=== PATIENT | female | born 1975 | race American Indian/Alaskan Native ===

== ENCOUNTER 2017-03-12 21:49 | Emergency (ER) | payer OTHER, MEDICARE ==
[2017-03-13] MEDS ORDERED: MOTRIN PO ONE (01:40)
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
[2017-03-13 02:16] VITALS: BP 130/70
== END 2017-03-13 02:16 | disposition home or self-care (01) ==
LOC: ED 21:49
DX: S13.4XXA Sprain of ligaments of cervical spine, initial encounter (principal); S39.012A Strain of muscle, fascia and tendon of lower back, initial encounter; I10 Essential (primary) hypertension; Z88.0 Allergy status to penicillin; Z91.013 Allergy to seafood; Z91.012 Allergy to eggs; Z88.2 Allergy status to sulfonamides; Z91.040 Latex allergy status; V49.49XA Driver injured in collision with other motor vehicles in traffic accident, initial encounter; Y93.89 Activity, other specified; Y99.9 Unspecified external cause status; Y92.410 Unspecified street and highway as the place of occurrence of the external cause
CPT/HCPCS: 99282

== ENCOUNTER 2018-03-29 17:42 | Emergency (ER) | payer MEDICARE ==
[2018-03-29 17:51] VITALS: BP 106/69
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
[2018-03-29] MEDS ORDERED: TYLENOL ONE (18:17)
[2018-03-29] MEDS ORDERED: TYLENOL PO ONE (18:30)
--- NOTE | 2018-03-29 19:31 | XRay Report ---
FINAL REPORT EXAM: XR FOOT 3+V RT HISTORY: injury COMPARISON: Right ankle from the same date. FINDINGS: Three views of right foot obtained. Small calcaneal spurs. Bony structures are intact. Joint spaces are preserved. No acute fracture dislocation. IMPRESSION: No acute bony abnormality.
--- NOTE | 2018-03-29 19:31 | XRay Report ---
FINAL REPORT EXAM: XR ANKLE 3+V RT HISTORY: pain and swelling r/t injury COMPARISON: None available. FINDINGS: Two views the right ankle obtained. Ankle mortise is preserved. No acute fracture dislocation. IMPRESSION: No acute bony abnormality.
[2018-03-29] MEDS ORDERED: TORADOL IM ONE (20:04)
== END 2018-03-29 20:35 | disposition home or self-care (01) ==
LOC: ED 17:42
DX: S93.431A Sprain of tibiofibular ligament of right ankle, initial encounter (principal); I10 Essential (primary) hypertension; Z90.49 Acquired absence of other specified parts of digestive tract; Z98.51 Tubal ligation status; Z79.899 Other long term (current) drug therapy; Z88.1 Allergy status to other antibiotic agents; Z88.0 Allergy status to penicillin; Z91.012 Allergy to eggs; Z91.013 Allergy to seafood; Z91.040 Latex allergy status; X50.1XXA Overexertion from prolonged static or awkward postures, initial encounter; Y93.31 Activity, mountain climbing, rock climbing and wall climbing; Y99.8 Other external cause status; Y92.828 Other wilderness area as the place of occurrence of the external cause
CPT/HCPCS: 73610; 73630; 96372; 99284; J1885

== ENCOUNTER 2018-09-06 03:44 | Emergency (ER) | payer MEDICARE ==
[2018-09-06] MEDS ORDERED: ZOFRAN ONE (04:11)
[2018-09-06] MEDS ORDERED: ZOFRAN IV ONE (04:49)
[2018-09-06 04:53] LABS: Basophils # (Auto) 0.1 K/mm3 (0.0-0.1); Eosinophils # (Auto) 0.1 K/mm3 (0.0-0.4); Eosinophils % (Auto) 0.7 % (0.0-4.3); Hematocrit 35.6 % (30.3-42.9); Hemoglobin 11.7 gm/dl (10.1-14.3); Lymphocytes # (Auto) 1.2 K/mm3 (1.2-5.4); Lymphocytes % (Auto) 14.7 % (13.4-35.0); Mean Corpuscular HGB Conc 33 % (30-34); Mean Corpuscular Hemoglobin 28 pg (28-32); Mean Corpuscular Volume 86 fl (79-97); Monocytes # (Auto) 0.4 K/mm3 (0.0-0.8); Monocytes % (Auto) 4.4 % (0.0-7.3); Platelet Count 219 K/mm3 (140-440); Red Blood Count 4.13 M/mm3 (3.65-5.03); Red Cell Distribution Width 13.7 % (13.2-15.2)
[2018-09-06 05:13] LABS: BUN/Creatinine Ratio 13; Blood Urea Nitrogen 8 mg/dL (7-17); Calcium 8.8 mg/dL (8.4-10.2); Hemolysis Index 3
[2018-09-06] MEDS ORDERED: PEPCID IV ONE (06:39)
--- NOTE | 2018-09-06 06:41 | Emergency Department Report ---
ED General Adult HPI - General Chief complaint: Nausea/Vomiting/Diarrhea Stated complaint: THROWING UP Time Seen by Provider: 09/06/18 06:20 Source: patient, family, RN notes reviewed Mode of arrival: Ambulatory Limitations: No Limitations - History of Present Illness Initial comments: This is a 42-year-old female who is not known to this provider previously. Past medical history includes hypertension, cholecystectomy, gastric sleeve, tubal ligation, fibroids Patient presents to the ER with a complaint of abdominal cramping, nausea and vomiting. 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 Both patient and companions deny other coingestions. They report that this ingestion was recreational in nature. There is no intent to self-harm. Patient describes 10 episodes of nonbloody, nonbilious emesis after consuming alcohol. Prior to consuming alcohol, she was not having any symptoms. She doesn't really have much in with abdominal pain at this time. Her symptoms are mostly resolved after being given Zofran. She denies lower abdominal pain, and denies or delivery within the past 2 months. -: Gradual Location: abdomen Radiation: non-radiation Quality: aching Consistency: now resolved Improves with: medication Worsens with: eating Associated Symptoms: loss of appetite, malaise, nausea/vomiting, weakness. denies: confusion, chest pain, cough, diaphoresis, fever/chills, headaches, rash , seizure, shortness of breath, syncope - Related Data Previous Rx's Medication Instructions Recorded Last Taken Type Ibuprofen [Motrin] 600 mg PO Q8H PRN #30 tablet 09/21/15 Unknown Rx diazePAM TAB [Valium] 5 mg PO TID PRN #10 tablet 09/21/15 Unknown Rx Cyclobenzaprine HCl [Flexeril 5 MG 5 mg PO TID 5 Days tab 03/13/17 Unknown Rx TAB] Ibuprofen [Motrin 600 MG tab] 600 mg PO Q8H PRN 5 Days tablet 03/13/17 Unknown Rx Acetaminophen/Codeine [Tylenol 1 tab PO Q6H PRN #9 tab 03/29/18 Unknown Rx /Codeine # 3 tab] Ibuprofen [Motrin] 600 mg PO Q8H PRN #25 tablet 03/29/18 Unknown Rx Acetaminophen [Tylenol Arthritis] 650 mg PO Q6HR PRN #30 tablet.er 09/06/18 Unknown Rx Famotidine [Pepcid] 20 mg PO BID #10 tablet 09/06/18 Unknown Rx Ondansetron [Zofran Odt] 4 mg PO Q8HR PRN #20 tab.rapdis 09/06/18 Unknown Rx Allergies Allergy/AdvReac Type Severity Reaction Status Date / Time amoxicillin Allergy Unknown Verified 03/29/18 17:51 egg Allergy Hives Verified 03/12/17 22:44 Fish Containing Products Allergy Hives Verified 03/12/17 22:44 latex Allergy Hives Verified 09/21/15 13:01 metoclopramide [From Reglan] Allergy Unknown Verified 03/29/18 17:51 Penicillins Allergy Hives Verified 03/12/17 22:43 Sulfa (Sulfonamide Allergy Hives Verified 03/12/17 22:44 Antibiotics) ED Review of Systems ROS: Stated complaint: THROWING UP Other details as noted in HPI Comment: All other systems reviewed and negative ED Past Medical Hx - Past Medical History Hx Hypertension: Yes - Surgical History Hx Cholecystectomy: Yes Additional Surgical History: gastric sleve,laproscopic r/t fibroids, tubiligation then reversal 2011- no since - Social History Smoking Status: Never Smoker Substance Use Type: None - Medications Home Medications: Home Medications Medication Instructions Recorded Confirmed Last Taken Type Ibuprofen [Motrin] 600 mg PO Q8H PRN #30 tablet 09/21/15 Unknown Rx diazePAM TAB [Valium] 5 mg PO TID PRN #10 tablet 09/21/15 Unknown Rx Cyclobenzaprine HCl [Flexeril 5 MG 5 mg PO TID 5 Days tab 03/13/17 Unknown Rx TAB] Ibuprofen [Motrin 600 MG tab] 600 mg PO Q8H PRN 5 Days tablet 03/13/17 Unknown Rx Acetaminophen/Codeine [Tylenol 1 tab PO Q6H PRN #9 tab 03/29/18 Unknown Rx /Codeine # 3 tab] Ibuprofen [Motrin] 600 mg PO Q8H PRN #25 tablet 03/29/18 Unknown Rx Acetaminophen [Tylenol Arthritis] 650 mg PO Q6HR PRN #30 tablet.er 09/06/18 Unknown Rx Famotidine [Pepcid] 20 mg PO BID #10 tablet 09/06/18 Unknown Rx Ondansetron [Zofran Odt] 4 mg PO Q8HR PRN #20 tab.rapdis 09/06/18 Unknown Rx ED Physical Exam - General Limitations: No Limitations General appearance: alert, in no apparent distress - Head Head exam: Present: atraumatic, normocephalic - Eye Eye exam: Present: normal appearance, EOMI. Absent: nystagmus - ENT ENT exam: Present: normal exam, normal orophraynx, mucous membranes moist, normal external ear exam - Neck Neck exam: Present: normal inspection, full ROM. Absent: tenderness, meningismus - Respiratory Respiratory exam: Present: normal lung sounds bilaterally. Absent: respiratory distress - Cardiovascular Cardiovascular Exam: Present: regular rate, normal rhythm, normal heart sounds. Absent: bradycardia, tachycardia, irregular rhythm, systolic murmur, diastolic murmur, rubs, gallop - GI/Abdominal GI/Abdominal exam: Present: soft, tenderness, other (there is epigastric tenderness, with no right upper quadrant tenderness, no rebound, guarding or peritoneal signs.). Absent: distended, guarding, rebound, rigid, pulsatile mass - Extremities Exam Extremities exam: Present: normal inspection, full ROM, normal capillary refill , other (2+ pulses noted in the bilateral upper, lower extremities. Compartments soft. No long bony tenderness. The pelvis is stable.). Absent: tenderness, pedal edema, joint swelling, calf tenderness - Back Exam Back exam: Present: normal inspection, full ROM. Absent: tenderness, CVA tenderness (R), paraspinal tenderness, vertebral tenderness - Neurological Exam Neurological exam: Present: alert, oriented X3, CN II-XII intact, other ( Extraocular movements intact. Tongue midline. No facial droop. Facial sensation intact to light touch in the V1, V2, V3 distribution bilaterally. 5 and 5 strength in 4 extremities.. Sensation is intact to light touch in 4 extremities.). Absent: motor sensory deficit - Psychiatric Psychiatric exam: Present: normal affect, normal mood - Skin Skin exam: Present: warm, dry, intact, normal color. Absent: rash ED Course Vital Signs 09/06/18 09/06/18 09/06/18 03:50 03:55 07:25 Temperature 97.6 F 97.6 F Pulse Rate 73 69 Respiratory 18 18 Rate Blood Pressure 142/90 142/90 125/74 O2 Sat by Pulse 100 100 Oximetry 09/06/18 09/06/18 09/06/18 07:30 08:01 08:15 Temperature Pulse Rate 89 Respiratory 16 Rate Blood Pressure 130/80 120/84 122/74 O2 Sat by Pulse 100 97 Oximetry 09/06/18 09/06/18 09/06/18 08:30 08:55 09:02 Temperature Pulse Rate 87 Respiratory 15 Rate Blood Pressure 115/73 115/73 115/73 O2 Sat by Pulse 84 Oximetry - Reevaluation(s) Reevaluation #1: 09/06/18 06:49 Differential diagnosis, including but not limited to: Pancreatitis, alcoholic gastritis, alcohol intoxication, calm patient from bariatric surgery Assessment and plan: 42-year-old female who had gastric sleeve performed approximately one year ago, with epigastric pain, nausea and vomiting, minimal tenderness, the context of alcohol consumption. I suspect alcohol intoxication , with abdominal wall pain secondary to nausea and vomiting. Nevertheless, given history of gastric sleeve, we'll obtain CT scan of the abdomen and pelvis. Patient will be given Pepcid, and D5 half-normal. We will obtain EKG. 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 The patient is pleasant, calm and cooperative at this time, does not meet 1013 criteria. Reevaluation #2: 09/06/18 09:15 CT scan of the abdomen and pelvis is negative for acute disease. Patient is tolerating liquid feeds and walking with a steady gait and is clinically sober at this time. Belly is soft on repeat examination. Patient is medically suitable for discharge at this point in time. ED Medical Decision Making - Lab Data Result diagrams: 09/06/18 04:24 09/06/18 04:24 Vital Signs 09/06/18 03:55 Temperature 97.6 F Pulse Rate 69 Respiratory 18 Rate Blood Pressure 142/90 O2 Sat by Pulse 100 Oximetry Lab Results 09/06/18 09/06/18 09/06/18 Range/Units 04:24 04:24 04:24 WBC 8.2 (4.5-11.0) K/mm3 RBC 4.13 (3.65-5.03) M/mm3 Hgb 11.7 (10.1-14.3) gm/dl Hct 35.6 (30.3-42.9) % MCV 86 (79-97) fl MCH 28 (28-32) pg MCHC 33 (30-34) % RDW 13.7 (13.2-15.2) % Plt Count 219 (140-440) K/mm3 Lymph % (Auto) 14.7 (13.4-35.0) % [place] % (Auto) 4.4 (0.0-7.3) % Eos % (Auto) 0.7 (0.0-4.3) % Baso % (Auto) 1.0 (0.0-1.8) % Lymph # 1.2 (1.2-5.4) K/mm3 [place] # 0.4 (0.0-0.8) K/mm3 Eos # 0.1 (0.0-0.4) K/mm3 Baso # 0.1 (0.0-0.1) K/mm3 Seg Neutrophils % 79.2 H (40.0-70.0) % Seg Neutrophils # 6.5 (1.8-7.7) K/mm3 Sodium 140 (137-145) mmol/L Potassium 3.4 L (3.6-5.0) mmol/L Chloride 101.7 (98-107) mmol/L Carbon Dioxide 20 L (22-30) mmol/L Anion Gap 22 mmol/L BUN 8 (7-17) mg/dL Creatinine 0.6 L (0.7-1.2) mg/dL Estimated GFR > 60 ml/min BUN/Creatinine Ratio 13 % Glucose 135 H (65-100) mg/dL Calcium 8.8 (8.4-10.2) mg/dL HCG, Qual Negative (Negative) - EKG Data -: EKG Interpreted by Me EKG shows normal: sinus rhythm - EKG Data When compared to previous EKG there are: previous EKG unavailable 09/06/18 07:02 Sinus, 85 bpm, normal axis, QTC prolonged, low voltage, abnormal EKG, not having chest pain, not a stemi Critical care attestation.: If time is entered above; I have spent that time in minutes in the direct care of this critically ill patient, excluding procedure time. ED Disposition Clinical Impression: History of alcohol use, Resolved abdominal pain Disposition: TO HOME OR SELFCARE Is pt being admited?: No Does the pt Need Aspirin: No Condition: Good Additional Instructions: Avoid consumption of Motrin, ibuprofen, Naprosyn, Aleve, heavy, spicy foods. Make certain to moderate and be judicious with alcohol consumption in the future. Take pain medications as needed/directed, and advance diet as tolerated. Return to the ER right away with new pain, worsened pain, migration of pain, projectile vomiting, change in mental status, confusion, inability to tolerate liquid feeds. Referrals: [facility] [Provider Group] - 3-5 Days
[2018-09-06] MEDS ORDERED: K-DUR PO ONE (06:51)
[2018-09-06] MEDS ORDERED: D5/0.45NS 1,000 ML IV SCH (07:00)
[2018-09-06] MEDS ORDERED: KCL 10MEQ/100ML 10 MEQ/100 ML BAG IV SCH (07:00)
[2018-09-06 09:05] VITALS: BP 115/73
--- NOTE | 2018-09-06 09:12 | Cat Scan Report ---
FINAL REPORT PROCEDURE: CT ABDOMEN PELVIS W CON TECHNIQUE: Computerized axial tomography of the abdomen and pelvis was performed after the IV injection of iodinated nonionic contrast. HISTORY: abd pain n/v COMPARISON: No prior studies are available for comparison. FINDINGS: Liver, spleen, and adrenal glands are within normal limits. Bilateral kidneys demonstrate uniform enhancement without hydronephrosis. Urinary bladder is partially filled. Bladder juarez appear mildly thickened most likely secondary to lack of distension. Aorta is of normal caliber. Mild degree of free fluid is noted in the pelvic cavity which is within physiologic limits. There is no free air. Status post cholecystectomy. Small bowel loops are within normal limits. Moderate degree residual stool is noted. Appendix is normal. Vertebral height is normal. IMPRESSION: Mild degree bladder wall thickening is most likely secondary to lack of distension. Otherwise no acute intra-abdominal or pelvic pathology.
== END 2018-09-06 09:43 | disposition home or self-care (01) ==
LOC: ED 03:44
DX: R10.13 Epigastric pain (principal); R11.2 Nausea with vomiting, unspecified; I10 Essential (primary) hypertension; F10.920 Alcohol use, unspecified with intoxication, uncomplicated; Z88.0 Allergy status to penicillin; Z88.1 Allergy status to other antibiotic agents; Z88.2 Allergy status to sulfonamides; Z88.5 Allergy status to narcotic agent; Z91.012 Allergy to eggs; Z91.013 Allergy to seafood; Z91.040 Latex allergy status; Z90.49 Acquired absence of other specified parts of digestive tract; Z98.84 Bariatric surgery status; Z98.51 Tubal ligation status
CPT/HCPCS: 36415; 74177; 80048; 83690; 83735; 84703; 85025; 93005; 93010; 96365; 96366; 96375; 99284; G0480; J2405; J3480; Q9967; 80320

== ENCOUNTER 2018-12-17 04:13 | Emergency (ER) | payer MEDICARE ==
[2018-12-17 04:59] VITALS: BP 102/75
[2018-12-17] MEDS ORDERED: TORADOL IM ONE (05:58)
[2018-12-17] MEDS ORDERED: NEURONTIN PO ONE (05:58)
--- NOTE | 2018-12-17 06:07 | Emergency Department Report ---
Upper Extremity - HPI Chief Complaint: Extremity Problem,Nontraumatic Stated Complaint: LEFT ARM/HAND NUMBNESS Time Seen by Provider: 12/17/18 06:01 Upper Extremity: Left Shoulder (pain ), Left Arm (pain tingling), Left Elbow Occurred When: >5 Days (chronic pain) Symptoms: Yes Pain with Movement, No Deformity, No Limited Range of Movement, No Numbness, No Weakness, No Swelling, No Bruising/Ecchymosis, No Laceration or Abrasion Other History: Patient is a 43-year-old -[place] female with a history of cervical radiculopathy radiating to left arm patient states her gabapentin and Flexeril patient is followed by Dr. Serrano and Neurology, this problem has been recurring for the last 5 years patient denies chest pain or shortness of breath no diaphoresis no nausea vomiting no dizziness or lightheadedness no cardiac history this flare is described as usual symptoms location, intensity, and duration as 5/10 burning aching tingling pt requesting refill no ga aria barker, will follow up with Dr Serrano in 5 days ED Review of Systems ROS: Stated complaint: LEFT ARM/HAND NUMBNESS Other details as noted in HPI Constitutional: denies: chills, fever Eyes: denies: eye pain, eye discharge, vision change ENT: denies: ear pain, throat pain Respiratory: denies: cough, shortness of breath, wheezing Cardiovascular: denies: chest pain, palpitations Endocrine: no symptoms reported Gastrointestinal: denies: abdominal pain, nausea, diarrhea Genitourinary: denies: urgency, dysuria, discharge Musculoskeletal: myalgia (left arm ) Skin: denies: rash, lesions Neurological: denies: headache, weakness, paresthesias Psychiatric: denies: anxiety, depression Hematological/Lymphatic: denies: easy bleeding, easy bruising ED Past Medical Hx - Past Medical History Previous Medical History?: Yes Hx Hypertension: Yes Hx Arthritis: Yes Hx Asthma: Yes Additional medical history: muscle spasm - Surgical History Past Surgical History?: Yes Hx Cholecystectomy: Yes Additional Surgical History: gastric sleve,laproscopic r/t fibroids,tubiligation then reversal 2011- no since - Social History Smoking Status: Never Smoker Substance Use Type: None - Medications Home Medications: Home Medications Medication Instructions Recorded Confirmed Last Taken Type Ibuprofen [Motrin] 600 mg PO Q8H PRN #30 tablet 09/21/15 Unknown Rx diazePAM TAB [Valium] 5 mg PO TID PRN #10 tablet 09/21/15 Unknown Rx Cyclobenzaprine HCl [Flexeril 5 MG 5 mg PO TID 5 Days tab 03/13/17 Unknown Rx TAB] Ibuprofen [Motrin 600 MG tab] 600 mg PO Q8H PRN 5 Days tablet 03/13/17 Unknown Rx Acetaminophen/Codeine [Tylenol 1 tab PO Q6H PRN #9 tab 03/29/18 Unknown Rx /Codeine # 3 tab] Ibuprofen [Motrin] 600 mg PO Q8H PRN #25 tablet 03/29/18 Unknown Rx Acetaminophen [Tylenol Arthritis] 650 mg PO Q6HR PRN #30 tablet.er 09/06/18 Unknown Rx Famotidine [Pepcid] 20 mg PO BID #10 tablet 09/06/18 Unknown Rx Ondansetron [Zofran Odt] 4 mg PO Q8HR PRN #20 tab.rapdis 09/06/18 Unknown Rx Cyclobenzaprine [Flexeril] 10 mg PO QHS PRN #10 tablet 10/13/18 Unknown Rx Naproxen [Naprosyn TAB] 500 mg PO BID PRN #20 tablet 10/13/18 Unknown Rx Cyclobenzaprine [Flexeril] 10 mg PO TID PRN #30 tablet 12/17/18 Unknown Rx Gabapentin [Neurontin] 300 mg PO Q8HR #90 capsule 12/17/18 Unknown Rx Menthol/Camphor [Taswell [place] 1 applicatio TP QID PRN #1 tube 12/17/18 Unknown Rx Ointment] Naproxen [Naprosyn] 500 mg PO BID PRN #30 tablet 12/17/18 Unknown Rx Upper Extremity Exam - Exam General: Vital signs noted. No distress. Alert and acting appropriately. Head and Torso: No HEENT Abnormality, No Neck Tenderness, No Chest/Lungs Abnormality, No Abdominal Tenderness, No Back Tenderness Shoulder Exam: Yes Normal Range of Motion in Shoulder, No Shoulder Tenderness, No Clavicle Tenderness, No Shoulder Deformity, No AC Joint Tenderness Arm Exam: No Arm/Humerus Tenderness, No Arm Deformity Elbow: Yes Normal Range of Motion in Elbow, No Elbow Tenderness, No Elbow Deformity Forearm: Yes Forearm Tenderness (carpal region tenderness ), Yes Pain with Pronation, Yes Pain with Supination, No Forearm Deformity Wrist: Yes Normal ROM in Wrist, No Wrist Tenderness, No Wrist Deformity, No Snuffbox Tenderness, No Pain with Axial Thumb Compression Hand: Yes Normal ROM in Digit(s), No Hand Tenderness, No Hand Deformity, No Digit Tenderness, No Digit(s) Deformity, No Tendon Dysfunction CMS Exam: Yes Normal Distal Pulses, Yes Normal Capillary Refill, Yes Normal Distal Sensation, No Broken Skin ED Course Vital Signs 12/17/18 04:46 Temperature 97.3 F L Pulse Rate 74 Respiratory 12 Rate Blood Pressure 102/75 O2 Sat by Pulse 99 Oximetry ED Medical Decision Making - EKG Data EKG shows normal: sinus rhythm Rate: normal - EKG Data When compared to previous EKG there are: other (no previous EKG at facility ) Interpretation: normal EKG (Normal ekg no ST elevated SC, no ectopy interp be ED attending, ) - Medical Decision Making EKG normal sinus rhythm no ectopy or ST segment abnormalities, pain is improved with NSAIDs, patient appears well and nontoxic , This likley is an acute exacerbation of cervical radiculopathy there is no posterior vertebral point tenderness, mild left lateral neck muscle tenderness to deep palpation which exacerbates arm pain , range of motion intact including Chin to chest ,bilateral shoulders, and full neck extension without restriction, shoulder drop intact, 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 There has been no new fall , injury, or trauma. pt is in usual location for of past 5 years, plan refill gabapentin as requested refill Flexeril as requested , short burst NSAIDs patient will follow up with Dr. Serrano PCP in 2-3 days will call today to get an earlier appointment , will follow up with neurology as scheduled in 2 weeks patient is currently alert and oriented 3 patient is ambulatory in ED with steady gait there is no numbness or tingling at this time no weakness dizziness or lightheadedness no chest pain shortness of breath no diaphoresis there is no loss of decrease in bowel or bladder function, no fever no chills patient will be DC'd to home in stable condition via POV and family member at this time return to ED should symptoms worsen patient verbalized agreement and understanding with discharge plan DC'd to home in stable condition at this time Critical care attestation.: If time is entered above; I have spent that time in minutes in the direct care of this critically ill patient, excluding procedure time. ED Disposition Clinical Impression: Radicular neuropathy Disposition: TO HOME OR SELFCARE Is pt being admited?: No Does the pt Need Aspirin: No Condition: Stable Instructions: Cervical Radiculopathy (ED) Additional Instructions: follow up with your PCP Dr Serrano int 1-2 days call tomorrow for sooner approintment , Follow up with Neurology Dr. De La Torre as scheduled Prescriptions: Cyclobenzaprine [Flexeril] 10 mg PO TID PRN #30 tablet PRN Reason: Muscle Spasm Gabapentin [Neurontin] 300 mg PO Q8HR #90 capsule Menthol/Camphor [Taswell [place] Ointment] 1 applicatio TP QID PRN #1 tube PRN Reason: pain Naproxen [Naprosyn] 500 mg PO BID PRN #30 tablet PRN Reason: pain Referrals: PRIMARY CARE, [Referring] - 3-5 Days Forms: Work/School Release Form(ED) Time of Disposition: 06:22
== END 2018-12-17 06:32 | disposition home or self-care (01) ==
LOC: ED 04:13
DX: M54.12 Radiculopathy, cervical region (principal); I10 Essential (primary) hypertension; J45.909 Unspecified asthma, uncomplicated; M25.512 Pain in left shoulder; M79.602 Pain in left arm; Z90.49 Acquired absence of other specified parts of digestive tract; Z98.51 Tubal ligation status
CPT/HCPCS: 93005; 93010; 96372; 99282; J1885

== ENCOUNTER 2019-05-20 09:20 | Emergency (ER) | payer MEDICARE ==
[2019-05-20 09:28] VITALS: BP 136/82
--- NOTE | 2019-05-20 09:44 | Emergency Department Report ---
ED General Adult HPI - General Chief complaint: Pain General Stated complaint: BODY PAIN Time Seen by Provider: 05/20/19 09:38 Source: patient Mode of arrival: Ambulatory Limitations: No Limitations - History of Present Illness Initial comments: Patient is a 43-year-old -[place] female with a history of cervical radiculopathy radiating to left arm patient states her gabapentin and Flexeril patient is followed by Dr. Serrano and Neurology, this problem has been recurring for the last 5 years patient denies chest pain or shortness of breath no d iaphoresis no nausea vomiting no dizziness or lightheadedness no cardiac history this flare is described as usual symptoms location, intensity, and duration as 10/ burning aching tingling pt requesting something for pain that will not put her to sleep. Location: neck Radiation: extremity Severity scale (0 -10): 10 Quality: aching, sharp Consistency: intermittent Improves with: medication Worsens with: movement Associated Symptoms: diaphoresis, fever/chills. denies: confusion, chest pain, cough, headaches, loss of appetite Treatments Prior to Arrival: none - Related Data Previous Rx's Medication Instructions Recorded Last Taken Type Ibuprofen [Motrin] 600 mg PO Q8H PRN #30 tablet 09/21/15 Unknown Rx diazePAM TAB [Valium] 5 mg PO TID PRN #10 tablet 09/21/15 Unknown Rx Cyclobenzaprine HCl [Flexeril 5 MG 5 mg PO TID 5 Days tab 03/13/17 Unknown Rx TAB] Ibuprofen [Motrin 600 MG tab] 600 mg PO Q8H PRN 5 Days tablet 03/13/17 Unknown Rx Acetaminophen/Codeine [Tylenol 1 tab PO Q6H PRN #9 tab 03/29/18 Unknown Rx /Codeine # 3 tab] Ibuprofen [Motrin] 600 mg PO Q8H PRN #25 tablet 03/29/18 Unknown Rx Acetaminophen [Tylenol Arthritis] 650 mg PO Q6HR PRN #30 tablet.er 09/06/18 Unknown Rx Famotidine [Pepcid] 20 mg PO BID #10 tablet 09/06/18 Unknown Rx Ondansetron [Zofran Odt] 4 mg PO Q8HR PRN #20 tab.rapdis 09/06/18 Unknown Rx Cyclobenzaprine [Flexeril] 10 mg PO QHS PRN #10 tablet 10/13/18 Unknown Rx Naproxen [Naprosyn TAB] 500 mg PO BID PRN #20 tablet 10/13/18 Unknown Rx Cyclobenzaprine [Flexeril] 10 mg PO TID PRN #30 tablet 12/17/18 Unknown Rx Gabapentin [Neurontin] 300 mg PO Q8HR #90 capsule 12/17/18 Unknown Rx Menthol/Camphor [[place] 1 applicatio TP QID PRN #1 tube 12/17/18 Unknown Rx Ointment] Naproxen [Naprosyn] 500 mg PO BID PRN #30 tablet 12/17/18 Unknown Rx Baclofen [Lioresal] 10 mg PO TID #30 tab 05/20/19 Unknown Rx Diclofenac Sodium 75 mg PO BID PRN #30 tablet. 05/20/19 Unknown Rx Lidocaine [Lidoderm] 1 each TP DAILY PRN #1 box 05/20/19 Unknown Rx Allergies Allergy/AdvReac Type Severity Reaction Status Date / Time amoxicillin Allergy Unknown Verified 05/20/19 09:22 egg Allergy Hives Verified 05/20/19 09:22 Fish Containing Products Allergy Hives Verified 05/20/19 09:22 latex Allergy Hives Verified 05/20/19 09:22 metoclopramide [From Reglan] Allergy Unknown Verified 05/20/19 09:22 Penicillins Allergy Hives Verified 05/20/19 09:22 Sulfa (Sulfonamide Allergy Hives Verified 05/20/19 09:22 Antibiotics) ED Review of Systems ROS: Stated complaint: BODY PAIN Other details as noted in HPI Comment: All other systems reviewed and negative ED Past Medical Hx - Past Medical History Hx Hypertension: Yes Hx Arthritis: Yes Hx Asthma: Yes Additional medical history: muscle spasm - Surgical History Hx Cholecystectomy: Yes Additional Surgical History: gastric sleve,laproscopic r/t fibroids,tubiligation then reversal 2011- no since - Social History Smoking Status: Never Smoker Substance Use Type: None - Medications Home Medications: Home Medications Medication Instructions Recorded Confirmed Last Taken Type Ibuprofen [Motrin] 600 mg PO Q8H PRN #30 tablet 09/21/15 Unknown Rx diazePAM TAB [Valium] 5 mg PO TID PRN #10 tablet 09/21/15 Unknown Rx Cyclobenzaprine HCl [Flexeril 5 MG 5 mg PO TID 5 Days tab 03/13/17 Unknown Rx TAB] Ibuprofen [Motrin 600 MG tab] 600 mg PO Q8H PRN 5 Days tablet 03/13/17 Unknown Rx Acetaminophen/Codeine [Tylenol 1 tab PO Q6H PRN #9 tab 03/29/18 Unknown Rx /Codeine # 3 tab] Ibuprofen [Motrin] 600 mg PO Q8H PRN #25 tablet 03/29/18 Unknown Rx Acetaminophen [Tylenol Arthritis] 650 mg PO Q6HR PRN #30 tablet.er 09/06/18 Unknown Rx Famotidine [Pepcid] 20 mg PO BID #10 tablet 09/06/18 Unknown Rx Ondansetron [Zofran Odt] 4 mg PO Q8HR PRN #20 tab.rapdis 09/06/18 Unknown Rx Cyclobenzaprine [Flexeril] 10 mg PO QHS PRN #10 tablet 10/13/18 Unknown Rx Naproxen [Naprosyn TAB] 500 mg PO BID PRN #20 tablet 10/13/18 Unknown Rx Cyclobenzaprine [Flexeril] 10 mg PO TID PRN #30 tablet 12/17/18 Unknown Rx Gabapentin [Neurontin] 300 mg PO Q8HR #90 capsule 12/17/18 Unknown Rx Menthol/Camphor [[place] 1 applicatio TP QID PRN #1 tube 12/17/18 Unknown Rx Ointment] Naproxen [Naprosyn] 500 mg PO BID PRN #30 tablet 12/17/18 Unknown Rx Baclofen [Lioresal] 10 mg PO TID #30 tab 05/20/19 Unknown Rx Diclofenac Sodium 75 mg PO BID PRN #30 tablet. 05/20/19 Unknown Rx Lidocaine [Lidoderm] 1 each TP DAILY PRN #1 box 05/20/19 Unknown Rx ED Physical Exam - General Limitations: No Limitations General appearance: alert, in no apparent distress - Head Head exam: Present: atraumatic, normocephalic - Eye Eye exam: Present: normal appearance - ENT ENT exam: Present: mucous membranes moist - Neck Neck exam: Present: tenderness (no vertebral), full ROM - Cardiovascular Cardiovascular Exam: Present: regular rate, normal rhythm. Absent: systolic murmur, diastolic murmur, rubs, gallop - Extremities Exam Extremities exam: Present: normal inspection, full ROM - Back Exam Back exam: Present: normal inspection, muscle spasm - Neurological Exam Neurological exam: Present: alert, oriented X3, normal gait - Psychiatric Psychiatric exam: Present: normal affect, normal mood - Skin Skin exam: Present: warm, dry, intact, normal color. Absent: rash ED Course Vital Signs 05/20/19 09:26 Temperature 97.9 F Pulse Rate 78 Respiratory 16 Rate Blood Pressure 136/82 [Left] O2 Sat by Pulse 95 Oximetry ED Medical Decision Making - Medical Decision Making 43-year-old -[place] female comes in with acute on chronic cervical radiculopathy. Patient's requesting pain medication that will not make her sleepy. I discussed the patient that I can give her a steroid injection of Toradol injections and place her on baclofen which is less sedated. Patient be discharged home on baclofen, Lidoderm patches and diclofenac's. Patient is to follow-up with her primary care provider Dr. Reinier Serrano in the next 3-5 days. Patient verbalized understanding Critical care attestation.: If time is entered above; I have spent that time in minutes in the direct care of this critically ill patient, excluding procedure time. ED Disposition Clinical Impression: Cervical radiculopathy Disposition: [id number] TO HOME OR SELFCARE Is pt being admited?: No Does the pt Need Aspirin: No Condition: Stable Instructions: Cervical Radiculopathy (ED) Additional Instructions: E medication as prescribed and as needed. Follow-up with Dr. Serrano in the next 4-5 days. Prescriptions: Diclofenac Sodium 75 mg PO BID PRN #30 tablet. PRN Reason: Pain , Severe (7-10) Lidocaine [Lidoderm] 1 each TP DAILY PRN #1 box PRN Reason: Pain , Severe (7-10) Baclofen [Lioresal] 10 mg PO TID #30 tab Forms: Work/School Release Form(ED)
[2019-05-20] MEDS ORDERED: TORADOL IM ONE (09:56)
[2019-05-20] MEDS ORDERED: DECADRON IM ONE (09:56)
== END 2019-05-20 10:17 | disposition home or self-care (01) ==
LOC: ED 09:20
DX: M54.12 Radiculopathy, cervical region (principal); I10 Essential (primary) hypertension; M19.90 Unspecified osteoarthritis, unspecified site; J45.909 Unspecified asthma, uncomplicated; Z90.49 Acquired absence of other specified parts of digestive tract; Z98.84 Bariatric surgery status; Z98.51 Tubal ligation status; Z79.899 Other long term (current) drug therapy; Z88.1 Allergy status to other antibiotic agents; Z88.8 Allergy status to other drugs, medicaments and biological substances; Z91.012 Allergy to eggs; Z91.013 Allergy to seafood
CPT/HCPCS: 96372; 99282; J1100; J1885

== ENCOUNTER 2020-08-24 19:05 | Emergency (ER) | payer MEDICARE ==
--- NOTE | 2020-08-24 19:36 | Emergency Department Report ---
ED Back Pain/Injury HPI - General Stated Complaint: SWOLLEN BACK/NECK/SHOULDER PAIN Time Seen by Provider: 08/24/20 19:32 - History of Present Illness Initial Comments: This is a 44-year-old female nontoxic, well nourished in appearance, no acute signs of distress presents to the ED with c/o of acute on chronic upper and lower back pain. Patient stated that she is diagnosed cervical and lumbar stenosis. Patient stated she has a PCP and had several MRI. Stated has some radiation to upper and lower extremities. Patient denies any trauma. Denies any bladder or bowel instability. Patient denies any urinary symptoms. Denies any fever, chills, nausea, vomiting, headache, stiff neck, chest pain or shortness of breath. Patient denies any numbness or tingling. Patient stated allergies to amoxicillin, latex, Reglan, penicillin and sulfa drugs. MD Complaint: back pain -: year(s) Similar Symptoms Previously: Yes Radiation: none Severity: mild Severity scale (0 -10): 3 Quality: aching Consistency: intermittent Improves With: immobilization, sitting upright Worsens With: movement, walking Context: while lifting, turning/twisting Associated Symptoms: denies other symptoms. denies: confusion, weakness, chest pain, numbness, difficulty walking, cough, difficulty urinating, diaphoresis, incontinence, fever/chills, constipation, headaches, abdominal pain, loss of appetite, malaise, nausea/vomiting, rash, seizure, syncope - Related Data Previous Rx's Medication Instructions Recorded Last Taken Type Ibuprofen [Motrin] 600 mg PO Q8H PRN #30 tablet 09/21/15 Unknown Rx diazePAM TAB [Valium] 5 mg PO TID PRN #10 tablet 09/21/15 Unknown Rx Cyclobenzaprine HCl [Flexeril 5 MG 5 mg PO TID 5 Days tab 03/13/17 Unknown Rx TAB] Ibuprofen [Motrin 600 MG tab] 600 mg PO Q8H PRN 5 Days tablet 03/13/17 Unknown Rx Acetaminophen/Codeine [Tylenol 1 tab PO Q6H PRN #9 tab 03/29/18 Unknown Rx /Codeine # 3 tab] Ibuprofen [Motrin] 600 mg PO Q8H PRN #25 tablet 03/29/18 Unknown Rx Acetaminophen [Tylenol Arthritis] 650 mg PO Q6HR PRN #30 tablet.er 09/06/18 Unknown Rx Famotidine [Pepcid] 20 mg PO BID #10 tablet 09/06/18 Unknown Rx Ondansetron [Zofran Odt] 4 mg PO Q8HR PRN #20 tab.rapdis 09/06/18 Unknown Rx Cyclobenzaprine [Flexeril] 10 mg PO QHS PRN #10 tablet 10/13/18 Unknown Rx Naproxen [Naprosyn TAB] 500 mg PO BID PRN #20 tablet 10/13/18 Unknown Rx Cyclobenzaprine [Flexeril] 10 mg PO TID PRN #30 tablet 12/17/18 Unknown Rx Gabapentin 300 mg PO Q8HR #90 capsule 12/17/18 Unknown Rx Menthol/Camphor [[place] 1 applicatio TP QID PRN #1 tube 12/17/18 Unknown Rx Ointment] Naproxen [Naprosyn] 500 mg PO BID PRN #30 tablet 12/17/18 Unknown Rx Baclofen [Lioresal] 10 mg PO TID #30 tab 05/20/19 Unknown Rx Diclofenac Sodium 75 mg PO BID PRN #30 tablet.dr 05/20/19 Unknown Rx Lidocaine [Lidoderm] 1 each TP DAILY PRN #1 box 05/20/19 Unknown Rx Cyclobenzaprine [Flexeril] 10 mg PO QHS PRN #10 tablet 08/24/20 Unknown Rx Allergies Allergy/AdvReac Type Severity Reaction Status Date / Time amoxicillin Allergy Unknown Verified 05/20/19 09:22 egg Allergy Hives Verified 05/20/19 09:22 Fish Containing Products Allergy Hives Verified 05/20/19 09:22 latex Allergy Hives Verified 05/20/19 09:22 metoclopramide [From Reglan] Allergy Unknown Verified 05/20/19 09:22 Penicillins Allergy Hives Verified 05/20/19 09:22 Sulfa (Sulfonamide Allergy Hives Verified 05/20/19 09:22 Antibiotics) ED Review of Systems ROS: Stated complaint: SWOLLEN BACK/NECK/SHOULDER PAIN Other details as noted in HPI Comment: All other systems reviewed and negative Constitutional: denies: chills, fever Eyes: denies: eye pain, eye discharge, vision change ENT: denies: ear pain, throat pain Respiratory: denies: cough, shortness of breath, wheezing Cardiovascular: denies: chest pain, palpitations Endocrine: no symptoms reported Gastrointestinal: denies: abdominal pain, nausea, diarrhea Genitourinary: denies: urgency, dysuria, discharge Musculoskeletal: back pain. denies: joint swelling, arthralgia Skin: denies: rash, lesions Neurological: denies: headache, weakness, paresthesias Psychiatric: denies: anxiety, depression Hematological/Lymphatic: denies: easy bleeding, easy bruising ED Past Medical Hx - Past Medical History Hx Hypertension: Yes Hx Arthritis: Yes Hx Asthma: Yes Additional medical history: muscle spasm - Surgical History Hx Cholecystectomy: Yes Additional Surgical History: gastric sleve,laproscopic r/t fibroids,tubiligation then reversal 2011- no since - Social History Smoking Status: Never Smoker Substance Use Type: None - Medications Home Medications: Home Medications Medication Instructions Recorded Confirmed Last Taken Type Ibuprofen [Motrin] 600 mg PO Q8H PRN #30 tablet 09/21/15 Unknown Rx diazePAM TAB [Valium] 5 mg PO TID PRN #10 tablet 09/21/15 Unknown Rx Cyclobenzaprine HCl [Flexeril 5 MG 5 mg PO TID 5 Days tab 03/13/17 Unknown Rx TAB] Ibuprofen [Motrin 600 MG tab] 600 mg PO Q8H PRN 5 Days tablet 03/13/17 Unknown Rx Acetaminophen/Codeine [Tylenol 1 tab PO Q6H PRN #9 tab 03/29/18 Unknown Rx /Codeine # 3 tab] Ibuprofen [Motrin] 600 mg PO Q8H PRN #25 tablet 03/29/18 Unknown Rx Acetaminophen [Tylenol Arthritis] 650 mg PO Q6HR PRN #30 tablet.er 09/06/18 Unknown Rx Famotidine [Pepcid] 20 mg PO BID #10 tablet 09/06/18 Unknown Rx Ondansetron [Zofran Odt] 4 mg PO Q8HR PRN #20 tab.rapdis 09/06/18 Unknown Rx Cyclobenzaprine [Flexeril] 10 mg PO QHS PRN #10 tablet 10/13/18 Unknown Rx Naproxen [Naprosyn TAB] 500 mg PO BID PRN #20 tablet 10/13/18 Unknown Rx Cyclobenzaprine [Flexeril] 10 mg PO TID PRN #30 tablet 12/17/18 Unknown Rx Gabapentin 300 mg PO Q8HR #90 capsule 12/17/18 Unknown Rx Menthol/Camphor [[place] 1 applicatio TP QID PRN #1 tube 12/17/18 Unknown Rx Ointment] Naproxen [Naprosyn] 500 mg PO BID PRN #30 tablet 12/17/18 Unknown Rx Baclofen [Lioresal] 10 mg PO TID #30 tab 05/20/19 Unknown Rx Diclofenac Sodium 75 mg PO BID PRN #30 tablet. 05/20/19 Unknown Rx Lidocaine [Lidoderm] 1 each TP DAILY PRN #1 box 05/20/19 Unknown Rx Cyclobenzaprine [Flexeril] 10 mg PO QHS PRN #10 tablet 08/24/20 Unknown Rx ED Physical Exam - General General appearance: alert, in no apparent distress - Head Head exam: Present: atraumatic, normocephalic - Eye Eye exam: Present: normal appearance - Neck Neck exam: Present: normal inspection, full ROM. Absent: tenderness, meningismus, lymphadenopathy - Respiratory Respiratory exam: Absent: respiratory distress - Cardiovascular Cardiovascular Exam: Present: regular rate - Extremities Exam Extremities exam: Present: normal inspection, full ROM, normal capillary refill. Absent: tenderness - Back Exam Back exam: Present: normal inspection, full ROM, paraspinal tenderness (lumbar and cervical paraspinal). Absent: tenderness, CVA tenderness (R), CVA tenderness (L), muscle spasm, vertebral tenderness, rash noted - Expanded Back Exam Expanded Back exam: Absent: saddle anesthesia Back exam: Negative Straight Leg Raising: Left, Right - Neurological Exam Neurological exam: Present: alert, oriented X3, normal gait - Psychiatric Psychiatric exam: Present: normal affect, normal mood - Skin Skin exam: Present: warm, dry, intact, normal color. Absent: rash ED Course Vital Signs 08/24/20 19:33 Temperature 98.4 F Pulse Rate 78 Respiratory 18 Rate Blood Pressure 120/83 O2 Sat by Pulse 100 Oximetry Vital Signs 08/24/20 19:33 Temperature 98.4 F Pulse Rate 78 Respiratory 18 Rate Blood Pressure 120/83 O2 Sat by Pulse 100 Oximetry - Reevaluation(s) Reevaluation #1: 08/24/20 19:36 Patient is speaking in full sentences with no signs of distress noted. ED Medical Decision Making - Medical Decision Making This is a 44-year-old female that presents with cervical strain and low back s train. Patient is stable was examined by me. There is no spinal tenderness. There is no cauda equina syndrome during examination. No bladder or bowel instability. Patient received Toradol 60 mg IM and Prednisone 60 mg PO in the ED which she stated that her symptoms has resolved and subsided. Patient is discharged with muscle relaxant and Naproxen. Patient was instructed not to operate any machinery while taking muscle relaxant as they cause her drowsiness. Patient was referred to Follow-up with a primary care doctor in 3-5 days or if symptoms worsen and continue return to emergency room as soon as possible. At time of discharge, the patient does not seem toxic or ill in appearance. No acute signs of distress noted. Patient agrees to discharge treatment plan of care. No further questions noted by the patient. Critical care attestation.: If time is entered above; I have spent that time in minutes in the direct care of this critically ill patient, excluding procedure time. ED Disposition Clinical Impression: Low back strain Qualifiers: Encounter type: initial encounter Qualified Code(s): S39.012A - Strain of muscle, fascia and tendon of lower back, initial encounter Cervical muscle strain Qualifiers: Encounter type: initial encounter Qualified Code(s): S16.1XXA - Strain of muscle, fascia and tendon at neck level, initial encounter Disposition: TO HOME OR SELFCARE Is pt being admited?: No Does the pt Need Aspirin: No Condition: Stable Instructions: Muscle Strain (ED), Cyclobenzaprine (By mouth) Additional Instructions: Follow-up with a primary care doctor in 3-5 days or if symptoms worsen and continue return to the emergency department as soon as possible. Prescriptions: Cyclobenzaprine [Flexeril] 10 mg PO QHS PRN #10 tablet PRN Reason: Muscle Spasm Referrals: PRIMARY CAREMD [Primary Care Provider] - 3-5 Days AMARA JORGE MD [Staff Physician] - 3-5 Days
[2020-08-24] MEDS ORDERED: predniSONE 20 MG TAB PO ONE (19:37)
[2020-08-24] MEDS ORDERED: KETOROLAC 60 MG/2 ML INJ IM ONE (19:37)
[2020-08-24 20:58] VITALS: BP 118/76
== END 2020-08-24 20:58 | disposition home or self-care (01) ==
LOC: ED 19:05
DX: S39.012A Strain of muscle, fascia and tendon of lower back, initial encounter (principal); S16.1XXA Strain of muscle, fascia and tendon at neck level, initial encounter; I10 Essential (primary) hypertension; M19.91 Primary osteoarthritis, unspecified site; J45.909 Unspecified asthma, uncomplicated; Z90.49 Acquired absence of other specified parts of digestive tract; Z98.890 Other specified postprocedural states; Z79.1 Long term (current) use of non-steroidal anti-inflammatories (NSAID); Z79.899 Other long term (current) drug therapy; Z88.1 Allergy status to other antibiotic agents; Z88.0 Allergy status to penicillin; Z91.012 Allergy to eggs; Z91.013 Allergy to seafood; Z91.040 Latex allergy status; Z88.2 Allergy status to sulfonamides; Z88.8 Allergy status to other drugs, medicaments and biological substances; X58.XXXA Exposure to other specified factors, initial encounter; Y93.89 Activity, other specified; Y92.89 Other specified places as the place of occurrence of the external cause; Y99.8 Other external cause status
CPT/HCPCS: 96372; 99282; J1885; J7512